=== PATIENT | female | born 1975 | race African-American/Black ===

== ENCOUNTER 2023-10-21 09:01 | Emergency (ER) | payer OTHER ==
[2023-10-21] MEDS ORDERED: Ketorolac Tromethamine 30 MG (1 mL) VIAL ONE (10:10)
== END 2023-10-21 12:26 | disposition home or self-care (01) ==
LOC: CSHERS 09:01
DX: S82.65XA Nondisplaced fracture of lateral malleolus of left fibula, initial encounter for closed fracture (principal); S82.55XA Nondisplaced fracture of medial malleolus of left tibia, initial encounter for closed fracture; W10.9XXA Fall (on) (from) unspecified stairs and steps, initial encounter
CPT/HCPCS: 29515; 96372; J1885